=== PATIENT | female | born 1975 | race Hispanic/Latino ===

== ENCOUNTER 2020-12-02 13:11 | Emergency (ER) | payer OTHER ==
--- OUTSIDE RECORDS SUMMARY | 2020-12-02 13:14 | XMS REPORT | Clinical Summary ---
:1975 Author Organization [facility] Address [address] [place] [address] Care Team Providers Name Role Phone Alexandra Mackenzie MD Primary Care Provider Allergies Active Allergy Reactions Severity Noted Date Comments No Known Drug Allergies 04/17/2016 Medications Medication Sig Dispensed Refills Start Date End Date Status DULoxetine (CYMBALTA) 60 TK 1 C PO QD 2 07/06/2016 Active MG capsule traZODone (DESYREL) 100 MG 4 07/16/2016 Active tablet diclofenac (VOLTAREN) 75 TK 1 T PO BID 2 08/08/2016 Active MG EC tablet Active Problems Problem Noted Date Positive CHAPARRO (antinuclear antibody) 08/01/2016 Pain in joint, multiple sites 08/01/2016 Klein's cyst 08/01/2016 Fatigue 04/17/2016 Mouth ulcers H/O heartburn Depression Surgical History Surgery Date Site/Laterality Comments APPENDECTOMY 11/03/2014 - 11/02/2015 CHOLECYSTECTOMY 11/03/2014 - 11/02/2015 Medical History Medical History Date Comments Anxiety generalized anxiety disorder Fatigue Mouth ulcers H/O heartburn Depression Family History Medical History Relation Name Comments Seizures Brother Breast cancer Mother Relation Name Status Comments Brother Mother Social History Tobacco Use Types Packs/Day Years Used Date Never Smoker Smokeless Tobacco: Never Used Alcohol Use Drinks/Week oz/Week Comments No not found Sex Assigned at Date Recorded Not on file Last Filed Vital Signs Not on file Plan of Treatment Health Maintenance Due Date Last Done Comments COVID-19 VACCINE (1 of 2) 1993 CERVICAL CANCER SCREENING 1998 INFLUENZA VACCINE 06/03/2020 Results Not on fileafter 12/02/2019 Advance Directives For more information, please contact: [phone] 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
[2020-12-02 14:30] LABS: Basophils % 0.5 % (0-1.3); Hematocrit 38.4 % (36.0-45.0); Lymphocytes % 28.6 % (15.3-44.8); MPV 8.1 fL (7.6-11.3); RBC Red Blood Cell Count 4.28 M/uL (3.86-4.86)
[2020-12-02 14:55] LABS: Albumin 3.9 g/dL (3.4-5.0); Bilirubin Total 0.2 mg/dL (0.2-1.0); Potassium 3.8 mmol/L (3.5-5.1); Protein, Total 7.8 g/dL (6.4-8.2)
[2020-12-02] MEDS ORDERED: HYDROCODONE/APAP 5/325 MG TAB ONE (14:56)
--- NOTE | 2020-12-02 15:29 | EDPHYS ---
Physician Documentation [facility] Name: Ana Rosa Wallace Age: 45 yrs Sex: Female : 1975 Arrival Date: 12/02/2020 Time: 13:15 Bed 6 Private MD: Kameron Morris E ED Physician Olivia Box HPI: 12/02 14:09 This 45 yrs old Female presents to ER via Ambulatory with complaints of Pain pm1 All Over, Joint pain. 14:09 Patient presenting with multiple complaints, but primarily joint pain all over. Onset: pm1 The symptoms/episode began/occurred 10/25/2020. The patient has been recently seen by a physician: the patient's primary care provider, Dr. Morris with similar presenting complaints, Had MRI done 2 weeks ago that was negative and then she was refereed to rheumatology. Patient has appointment with rheumatology in January but she wants some pain relief from her joint pain. Patient was seen at [facility] for the same complaint also and she was given a prescription for meloxicam. Historical: - Allergies: 13:52 No Known Allergies; ss - PMHx: 13:52 Anxiety; Depression; Rheumatoid Arthritis; ss - PSHx: 13:52 Cholecystectomy; Appendectomy; ss - Immunization history:: Adult Immunizations up to date. - Social history:: Smoking status: Patient denies any tobacco usage or history of. ROS: 14:09 Constitutional: Negative for fever, chills, and weight loss, Eyes: Negative for injury, pm1 pain, redness, and discharge, ENT: Negative for injury, pain, and discharge, Neck: Negative for injury, pain, and swelling, Cardiovascular: Negative for chest pain, palpitations, and edema, Respiratory: Negative for shortness of breath, cough, wheezing, and pleuritic chest pain, Abdomen/GI: Negative for abdominal pain, nausea, vomiting, diarrhea, and constipation, Back: Negative for injury and pain. 14:09 Skin: Negative for injury, rash, and discoloration, Neuro: Negative for headache, weakness, numbness, tingling, and seizure. 14:09 MS/extremity: Positive for joint pain, Negative for injury or acute deformity, decreased range of motion, deformity. Exam: 14:09 Constitutional: This is a well developed, well nourished patient who is awake, alert, pm1 and in no acute distress. Head/Face: Normocephalic, atraumatic. 14:09 Back: No spinal tenderness. No costovertebral tenderness. Full range of motion. Skin: Warm, dry with normal turgor. Normal color with no rashes, no lesions, and no evidence of cellulitis. MS/ Extremity: Pulses equal, no cyanosis. Neurovascular intact. Full, normal range of motion. 14:09 Eyes: Exam is negative for acute changes, Periorbital structures: appear normal, Pupils: no acute changes, Extraocular movements: no acute changes, Conjunctiva: normal. 14:09 Cardiovascular: Exam negative for acute changes, Rate: normal, Rhythm: regular, Pulses: no pulse deficits are appreciated. 14:09 Respiratory: Exam negative for acute changes, respiratory distress, shortness of breath. 14:09 Abdomen/GI: Inspection: abdomen appears normal, Palpation: abdomen is soft and non-tender, in all quadrants. 14:09 Neuro: Exam negative for acute changes, Orientation: is normal, Mentation: is normal, Motor: is normal, moves all fours, Gait: is steady, at a normal pace, without difficulty. Vital Signs: 13:39 BP 109 / 80; Pulse 92; Resp 16; Temp 97.7(TE); Pulse Ox 98% ; Weight 71.67 kg; Height 5 ss ft. 1 in. (154.94 cm); Pain 10/10; 15:02 BP 96 / 72; Pulse 88; Resp 16; Pulse Ox 97% on R/A; hb 15:37 BP 102 / 74; Pulse 84; Resp 16; Pulse Ox 99% ; hb 13:39 Body Mass Index 29.85 (71.67 kg, 154.94 cm) ss MDM: 13:58 Patient medically screened. pm1 15:26 Data reviewed: vital signs. 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 08/17/2020 last pm1 prescription filled. 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 12/02 14:01 Order name: CBC with Diff; Complete Time: 14:39 pm1 12/02 14:01 Order name: CMP; Complete Time: 15:07 pm1 Administered Medications: 12:40 Drug: [place] 5 mg-325 mg 1 tabs Route: PO; hb 15:37 Follow up: Response: No adverse reaction hb Disposition: 12/02/20 15:29 Discharged to Home. Impression: Pain in unspecified joint - multiple joints. - Condition is Stable. - Discharge Instructions: Joint Pain. - Prescriptions for Tylenol- Codeine #3 300-30 mg Oral Tablet - take 2 tablets by ORAL route every 6 hours As needed; 20 tablet. - Medication Reconciliation Form, Thank You Letter, Antibiotic Education, Prescription Opioid Use form. - Follow up: Emergency Department; When: As needed; Reason: Worsening of condition. Follow up: Private Physician; When: 2 - 3 days; Reason: Recheck today's complaints, Continuance of care, Re-evaluation by your physician. - Problem is new. - Symptoms are unchanged. Addendum: 12/04/2020 18:01 Co-signature as Attending Physician, Olivia Box MD. m a2 Signatures: Dispatcher [employer] EDMS Jennifer Welsh RN RN ss Aleksandar Valiente NP PRODUCE SHIPPER pm1 Tiffanie Correia RN RN Olivia Box MD MD ma2 Corrections: (The following items were deleted from the chart) 12/02 15:29 15:29 12/02/2020 15:29 Discharged to Home. Impression: Pain in unspecified joint. pm1 Condition is Stable. Forms are Medication Reconciliation Form, Thank You Letter, Antibiotic Education, Prescription Opioid Use. Follow up: Emergency Department; When: As needed; Reason: Worsening of condition. Follow up: Private Physician; When: 2 - 3 days; Reason: Recheck today's complaints, Continuance of care, Re-evaluation by your physician. Problem is new. Symptoms are unchanged. pm1 15:39 15:29 12/02/2020 15:29 Discharged to Home. Impression: Pain in unspecified joint - hb multiple joints. Condition is Stable. Forms are Medication Reconciliation Form, Thank You Letter, Antibiotic Education, Prescription Opioid Use. Follow up: Emergency Department; When: As needed; Reason: Worsening of condition. Follow up: Private Physician; When: 2 - 3 days; Reason: Recheck today's complaints, Continuance of care, Re-evaluation by your physician. Problem is new. Symptoms are unchanged. pm1
--- NOTE | 2020-12-02 15:29 | ER ---
Nurse's Notes [facility] Name: Ana Rosa Wallace Age: 45 yrs Sex: Female : 1975 Arrival Date: 12/02/2020 Time: 13:15 Bed 6 Private MD: Kameron Morris E Diagnosis: Pain in unspecified joint-multiple joints Presentation: 12/02 13:39 Chief complaint: Patient states: Joint pain that began before Zoë. Pt has follow ss up appointments with neurology and rheumatology, but her pain is unbearable and does not want to wait until her appointment. Coronavirus screen: Client denies travel out of the [place] in the last 14 days. Ebola Screen: Patient denies exposure to infectious person. Patient denies travel to an Ebola-affected area in the 21 days before illness onset. Initial Sepsis Screen: Does the patient meet any 2 criteria? No. Patient's initial sepsis screen is negative. Does the patient have a suspected source of infection? No. Patient's initial sepsis screen is negative. Risk Assessment: Do you want to hurt yourself or someone else? Patient reports no desire to harm self or others. Onset of symptoms was October 2020. 13:39 Method Of Arrival: Ambulatory ss 13:39 Acuity: BELEM 3 ss Historical: - Allergies: 13:52 No Known Allergies; ss - PMHx: 13:52 Anxiety; Depression; Rheumatoid Arthritis; ss - PSHx: 13:52 Cholecystectomy; Appendectomy; ss - Immunization history:: Adult Immunizations up to date. - Social history:: Smoking status: Patient denies any tobacco usage or history of. Screenin:47 Abuse screen: Denies threats or abuse. Denies injuries from another. Nutritional hb screening: No deficits noted. Tuberculosis screening: No symptoms or risk factors identified. Fall Risk None identified. Assessment: 14:15 General: Appears in no apparent distress. Behavior is calm, cooperative. Pain: Pain hb currently is 8 out of 10 on a pain scale. Neuro: Level of Consciousness is awake, alert, obeys commands, Oriented to person, place, time, situation. Cardiovascular: Capillary refill < 3 seconds Patient's skin is warm and dry. Respiratory: Respiratory effort is even, unlabored, Respiratory pattern is regular, symmetrical. GI: No signs and/or symptoms were reported involving the gastrointestinal system. : No signs and/or symptoms were reported regarding the genitourinary system. EENT: No signs and/or symptoms were reported regarding the EENT system. Derm: Skin is intact. Musculoskeletal: Reports pain all over. 15:02 Reassessment: Patient appears in no apparent distress at this time. Patient and/or hb family updated on plan of care and expected duration. Pain level reassessed. Patient is alert, oriented x 3, equal unlabored respirations, skin warm/dry/pink. Vital Signs: 13:39 BP 109 / 80; Pulse 92; Resp 16; Temp 97.7(TE); Pulse Ox 98% ; Weight 71.67 kg; Height 5 ss ft. 1 in. (154.94 cm); Pain 10/10; 15:02 BP 96 / 72; Pulse 88; Resp 16; Pulse Ox 97% on R/A; hb 15:37 BP 102 / 74; Pulse 84; Resp 16; Pulse Ox 99% ; hb 13:39 Body Mass Index 29.85 (71.67 kg, 154.94 cm) ss ED Course: 13:15 Patient arrived in ED. mr 13:15 Kameron Morris MD is Private Physician. mr 13:46 Aleksandar Valiente, ROEL is PHCP. pm1 13:47 Olivia Box MD is Attending Physician. pm1 13:51 Triage completed. ss 13:52 Arm band placed on right wrist. ss 14:17 Initial lab(s) drawn, by ga, sent to lab. Inserted saline lock: 20 gauge in right dh3 antecubital area, using aseptic technique. Blood collected. 14:38 Tiffanie Correia, RN is Primary Nurse. hb 14:47 Patient has correct armband on for positive identification. Call light in reach. Side hb rails up X 1. 15:38 No provider procedures requiring assistance completed. IV discontinued, intact, hb bleeding controlled, No redness/swelling at site. Administered Medications: 12:40 Drug: [place] 5 mg-325 mg 1 tabs Route: PO; hb 15:37 Follow up: Response: No adverse reaction hb Outcome: 15:29 Discharge ordered by MD. pm1 15:38 Discharged to home ambulatory. hb 15:38 Condition: stable 15:38 Discharge instructions given to patient, Instructed on discharge instructions, follow up and referral plans. medication usage, Demonstrated understanding of instructions, follow-up care, medications, Prescriptions given X 1. 15:39 Patient left the ED. Signatures: An Saldaña Shelby RN MICKIE Aleksandar Valiente NP POSTAL SERVICE MAIL PROCESSOR pm1 Tiffanie Correia RN RN Elisa Palma 3
[2020-12-02 15:43] VITALS: TEMP 97.7
[2020-12-02 15:45] VITALS: BP 102/74; O2SAT 99
== END 2020-12-02 15:39 | disposition home or self-care (01) ==
LOC: ER 13:11
DX: M25.50 Pain in unspecified joint (principal); F41.9 Anxiety disorder, unspecified; F32.9 Major depressive disorder, single episode, unspecified; M06.9 Rheumatoid arthritis, unspecified
CPT/HCPCS: 36415; 80053; 85025; 99284

== ENCOUNTER 2022-05-20 22:16 | Emergency (ER) | payer OTHER ==
[2022-05-20] MEDS ORDERED: MAGNES/ALUMIN/SIMET 30ML UCUP ONE (22:40)
[2022-05-20] MEDS ORDERED: LIDOCAINE VISCOUS 2% SOLN 15 ML UDC ONE (22:40)
[2022-05-20] MEDS ORDERED: ASPIRIN 81 MG CHEWABLE TABLET ONE (22:40)
[2022-05-21 02:25] LABS: Absolute Lymphocytes (CBC) 1.7 K/uL (0.7-4.9); Hematocrit 35.6 % (36.0-45.0); Lymphocytes % 25.4 % (15.3-44.8); MCV 88.5 fL (80-100); MPV 7.7 fL (7.6-11.3); RBC Red Blood Cell Count 4.02 M/uL (3.86-4.86)
[2022-05-21 02:37] LABS: Troponin High Sensitivity 3.6 pg/mL (<58.9)
--- NOTE | 2022-05-21 05:23 | ER ---
Nurse's Notes [facility] Name: Ana Rosa Wallace Age: 47 yrs Sex: Female : 1975 Arrival Date: 05/20/2022 Time: 22:17 Bed 5 Private MD: Diagnosis: Upper abdominal pain, unspecified Presentation: 05/20 22:20 Chief complaint: EMS states: called out for chest pain. on seen pt vomited and reported as6 that chest pain improved. Coronavirus screen: At this time, the client does not indicate any symptoms associated with coronavirus-19. Ebola Screen: No symptoms or risks identified at this time. Initial Sepsis Screen: Does the patient meet any 2 criteria? No. Patient's initial sepsis screen is negative. Does the patient have a suspected source of infection? No. Patient's initial sepsis screen is negative. Risk Assessment: Do you want to hurt yourself or someone else? Patient reports no desire to harm self or others. Onset of symptoms was May 20, 2022. 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 - Social history:: Smoking status: Patient denies any tobacco usage or history of. Screenin:48 Abuse screen: Denies threats or abuse. Denies injuries from another. Nutritional as6 screening: No deficits noted. Tuberculosis screening: No symptoms or risk factors identified. Fall Risk None identified. Assessment: 22:30 General: Appears ill, slender, Behavior is calm, cooperative. Pain: Complains of pain as6 in mid-sternal area Pain radiates to back. Neuro: Level of Consciousness is awake, alert, obeys commands, Oriented to person, place, time, situation. Cardiovascular: Reports chest pain. Respiratory: Respiratory effort is even, unlabored. GI: Reports nausea. Vital Signs: 22:20 BP 133 / 83; Pulse 58; Resp 13 S; Temp 97.8(O); Pulse Ox 100% on R/A; Weight 54.43 kg as6 (R); Height 5 ft. 1 in. (154.94 cm) (R); Pain 10/10; 23:00 BP 110 / 81; Pulse 64; Resp 13 S; Pulse Ox 100% on R/A; as6 23:30 BP 110 / 76; Pulse 70; Resp 18 S; Pulse Ox 100% on R/A; as6 05/21 01:30 BP 113 / 78; Pulse 69; Resp 13 S; Pulse Ox 100% on R/A; as6 02:37 BP 122 / 80; Pulse 68; Resp 14 S; Pulse Ox 100% on R/A; as6 05/20 22:20 Body Mass Index 22.67 (54.43 kg, 154.94 cm) as6 ED Course: 05/20 22:17 Patient arrived in ED. as6 22:18 Nikhil Giron, MICKIE is Primary Nurse. as6 22:18 James Selby is PHCP. jl9 22:18 Hermelindo Bishop MD is Attending Physician. jl9 22:40 Triage completed. as6 22:46 Inserted saline lock: 20 gauge in right antecubital area, using aseptic technique. aa9 Blood collected. 22:47 Basic Metabolic Panel Sent. aa9 22:47 CBC with Diff Sent. aa9 22:47 Troponin HS Sent. aa9 22:56 XRAY Chest (1 view) In Process Unspecified. EDMS 23:48 Placed in gown. Bed in low position. Call light in reach. Side rails up X2. Client as6 placed on continuous cardiac and pulse oximetry monitoring. NIBP monitoring applied. Warm blanket given. 23:48 Arm band placed on. as6 05/21 03:16 CT Abd/Pelvis - IV Contrast Only In Process Unspecified. EDMS 03:26 Troponin High Sensitivity Sent. tw5 05:22 Kameron Brar MD is Referral Physician. rn 05:37 No provider procedures requiring assistance completed. IV discontinued, intact, tw5 bleeding controlled, No redness/swelling at site. Pressure dressing applied. Administered Medications: 05/20 22:42 Drug: Aspirin Chewable Tablet 324 mg Route: PO; aa9 22:50 Follow up: Response: No adverse reaction aa9 22:45 Drug: GI Cocktail with - (Phenobarbital-Belladonna 10 ml, Maalox Suspension 30 aa9 ml, Lidocaine Liquid 2 % 20 ml) Route: PO; 22:50 Follow up: Response: No adverse reaction aa9 Medication: 05/21 05:37 VIS not applicable for this client. tw5 Outcome: 05:23 Discharge ordered by . rn 05:37 Discharged to home ambulatory. tw5 05:37 Condition: improved 05:37 Discharge instructions given to family, Instructed on discharge instructions, follow up and referral plans. Demonstrated understanding of instructions, follow-up care. 05:38 Patient left the ED. 5 Signatures: Dispatcher [employer] EDMS Hermelindo Bishop MD MD rn Wood, Tiffany tw5 Nikhil Giron RN RN as6 James Selby jl9 Antonia Benitez RN RN aa9
--- NOTE | 2022-05-21 05:24 | EDPHYS ---
Physician Documentation [facility] Name: Ana Rosa Wallace Age: 47 yrs Sex: Female : 1975 Arrival Date: 05/20/2022 Time: 22:17 Bed 5 Private MD: ED Physician Hermelindo Bishop HPI: 05/20 22:22 This 47 yrs old Female presents to ER via EMS with complaints of Chest pain. jl9 Patient reports chest pain started while laying in bed. 22:22 Onset: The symptoms/episode began/occurred just prior to arrival. Severity of symptoms: jl9 Pain is currently a 3 / 10. The patient has experienced a previous episode. 22:22 Patient reports being under more stress than normal. . jl9 05/21 00:12 Patient describes midsternal/ epigastric discomfort. . jl9 OUTSIDE B2B SALES: 05/20 23:48 LMP N/A - Hysterectomy as6 Historical: - Allergies: 22:40 No Known Allergies; as6 - PMHx: 22:40 Anxiety; Depression; Rheumatoid Arthritis; as6 - PSHx: 22:40 Appendectomy; Total abdominal hysterectomy; Cholecystectomy; as6 - Immunization history:: Client reports receiving the 2nd dose of the Covid vaccine, moderna. - Social history:: Smoking status: Patient denies any tobacco usage or history of. ROS: 22:23 Constitutional: Negative for fever, chills, and weight loss, Eyes: Negative for injury, jl9 pain, redness, and discharge, ENT: Negative for injury, pain, and discharge, Neck: Negative for injury, pain, and swelling. 22:23 Respiratory: Negative for shortness of breath, cough, wheezing, and pleuritic chest pain, Abdomen/GI: Negative for abdominal pain, nausea, vomiting, diarrhea, and constipation, Back: Negative for injury and pain, : Negative for injury, bleeding, discharge, and swelling, MS/Extremity: Negative for injury and deformity, Skin: Negative for injury, rash, and discoloration, Neuro: Negative for headache, weakness, numbness, tingling, and seizure, Psych: Negative for depression, anxiety, suicide ideation, homicidal ideation, and hallucinations, Allergy/Immunology: Negative for hives, rash, and allergies, Endocrine: Negative for neck swelling, polydipsia, polyuria, polyphagia, and marked weight changes, Hematologic/Lymphatic: Negative for swollen nodes, abnormal bleeding, and unusual bruising. 22:23 Cardiovascular: Positive for chest pain, Negative for edema, orthopnea, palpitations. Exam: 22:24 Constitutional: This is a well developed, well nourished patient who is awake, alert, jl9 and in no acute distress. Head/Face: Normocephalic, atraumatic. Eyes: Pupils equal round and reactive to light, extra-ocular motions intact. Lids and lashes normal. Conjunctiva and sclera are non-icteric and not injected. Cornea within normal limits. Periorbital areas with no swelling, redness, or edema. ENT: Mucous membranes moist. Neck: Trachea midline, no thyromegaly or masses palpated, and no cervical lymphadenopathy. Supple, full range of motion without nuchal rigidity, or vertebral point tenderness. No Meningismus. 22:24 Cardiovascular: Regular rate and rhythm with a normal S1 and S2. No gallops, murmurs, or rubs. Normal PMI, no JVD. No pulse deficits. Respiratory: Lungs have equal breath sounds bilaterally, clear to auscultation and percussion. No rales, rhonchi or wheezes noted. No increased work of breathing, no retractions or nasal flaring. Abdomen/GI: Soft, non-tender, with normal bowel sounds. No distension or tympany. No guarding or rebound. No evidence of tenderness throughout. Back: No spinal tenderness. No costovertebral tenderness. Full range of motion. Pelvic Exam: Normal external genitalia. Speculum exam with closed cervical os, no discharge or bleeding noted. Bimanual exam with normal adnexa, no adnexal or cervical motion tenderness. Normal uterus. Skin: Warm, dry with normal turgor. Normal color with no rashes, no lesions, and no evidence of cellulitis. MS/ Extremity: Pulses equal, no cyanosis. Neurovascular intact. Full, normal range of motion. Neuro: Awake and alert, GCS 15, oriented to person, place, time, and situation. Cranial nerves II-XII grossly intact. Motor strength 5/5 in all extremities. Sensory grossly intact. Cerebellar exam normal. Normal gait. Psych: Awake, alert, with orientation to person, place and time. Behavior, mood, and affect are within normal limits. 22:24 Chest/axilla: Inspection: normal, Palpation: is normal, Axilla: are normal. 22:59 ECG was reviewed by the Attending Physician. jl9 Vital Signs: 22:20 BP 133 / 83; Pulse 58; Resp 13 S; Temp 97.8(O); Pulse Ox 100% on R/A; Weight 54.43 kg as6 (R); Height 5 ft. 1 in. (154.94 cm) (R); Pain 10/10; 23:00 BP 110 / 81; Pulse 64; Resp 13 S; Pulse Ox 100% on R/A; as6 23:30 BP 110 / 76; Pulse 70; Resp 18 S; Pulse Ox 100% on R/A; as6 05/21 01:30 BP 113 / 78; Pulse 69; Resp 13 S; Pulse Ox 100% on R/A; as6 02:37 BP 122 / 80; Pulse 68; Resp 14 S; Pulse Ox 100% on R/A; as6 05/20 22:20 Body Mass Index 22.67 (54.43 kg, 154.94 cm) as6 MDM: 05/20 22:21 Patient medically screened. jl9 22:24 Data reviewed: vital signs, nurses notes. jl9 23:55 Counseling: I had a detailed discussion with the patient and/or guardian regarding: the jl9 historical points, exam findings, and any diagnostic results supporting the discharge/admit diagnosis, lab results, radiology results, the need for outpatient follow up, to return to the emergency department if symptoms worsen or persist or if there are any questions or concerns that arise at home. 05/21 00:33 ED course: Pt reports to me abdominal pain, epigastric, radiates to chest, had pain for rn 2-3 minutes then started to ease on its own, resolved here after GI cocktail. Reports several similar episodes recently but not as bad as today, has been seeing Dr. Brar for these pains, put on antacids, had EGD and colonoscopy, and is going to have CT abdomen to further evaluate. Currently upon my evaluation, is pain free. + mild tenderness with epigastric palpation. Added CT abdomen to w/u.. 03:59 ED course: Repeat troponin negative. . rn 05:20 Differential diagnosis: diverticulitis, gastritis, gastroesophageal reflux disease, rn non-specific abd pain, pancreatitis, Peptic Ulcer Disease, Perf. Duodenal Ulcer, Perf. Gastric Ulcer. Response to treatment: the patient's symptoms have resolved after treatment, the patient's condition has returned to base line, the patient is now symptom free, and as a result, I will discharge patient. ED course: No acute findings on CT abdomen. Notified of possible urethral cyst/diverticulum, will f/u with urology. Will continue antacids and f/u with GI. Trop neg x 2. . 05/20 22:20 Order name: Basic Metabolic Panel; Complete Time: 02:40 [facility] 05/20 22:20 Order name: CBC with Diff; Complete Time: 02:40 [facility] 05/20 22:20 Order name: Troponin HS; Complete Time: 02:40 [facility] 05/20 22:20 Order name: XRAY Chest (1 view) [facility] 05/21 00:32 Order name: CT Abd/Pelvis - IV Contrast Only rn 05/21 03:13 Order name: Troponin High Sensitivity; Complete Time: 03:59 rn 05/20 22:20 Order name: EKG; Complete Time: 22:20 [facility] 05/20 22:20 Order name: Cardiac monitoring; Complete Time: 22:31 [facility] 05/20 22:20 Order name: EKG - Nurse/Tech; Complete Time: 22:32 [facility] 05/20 22:20 Order name: IV Saline Lock; Complete Time: 22:47 [facility] 05/20 22:20 Order name: Labs collected and sent; Complete Time: 22:47 [facility] 05/21 00:35 Order name: EKG; Complete Time: 00:36 rn 05/20 22:20 Order name: O2 Per Protocol; Complete Time: 22:32 [facility] 05/20 22:20 Order name: O2 Sat Monitoring; Complete Time: 22:32 [facility] 05/21 00:35 Order name: EKG - Nurse/Tech; Complete Time: 01:16 rn Administered Medications: 05/20 22:42 Drug: Aspirin Chewable Tablet 324 mg Route: PO; aa9 22:50 Follow up: Response: No adverse reaction aa9 22:45 Drug: GI Cocktail with - (Phenobarbital-Belladonna 10 ml, Maalox Suspension 30 aa9 ml, Lidocaine Liquid 2 % 20 ml) Route: PO; 22:50 Follow up: Response: No adverse reaction aa9 Disposition: 05/21 07:16 Co-signature as Attending Physician, Hermelindo Bishop MD. rn Disposition Summary: 05/21/22 05:23 Discharge Ordered Location: Home rn Problem: new rn Symptoms: have improved rn Condition: Stable rn Diagnosis - Upper abdominal pain, unspecified rn Followup: rn - With: Kameron Brar MD - When: As needed - Reason: Recheck today's complaints, Re-evaluation by your physician Discharge Instructions: - Discharge Summary Sheet rn - Abdominal Pain, Adult rn Forms: - Medication Reconciliation Form rn - Thank You Letter rn - Antibiotic rn obgyn - Prescription Opioid Use rn Signatures: Dispatcher [employer] EDMS Hermelindo Bishop MD MD rn Slawson, Ashby, RN RN [email or web address] James Selby jl9 Antonia Benitez RN RN aa9 Corrections: (The following items were deleted from the chart) 05/20 23:55 22:22 This 47 yrs old Female presents to ER via EMS with complaints of Chest jl9 pain. jl9
[2022-05-21 05:47] VITALS: TEMP 97.8; O2SAT 100
[2022-05-21 05:53] VITALS: BP 122/80
--- NOTE | 2022-05-21 08:13 | EKG ---
Test Date: 2022-05-21 Test Time: 01:14:25 Director College: [employer] MEASUREMENT RESULTS: Intervals: Rate: 67 MS: 136 QRSD: 82 QT: 396 QTc: 418 [place]: P: 57 MS: 136 QRS: 64 T: 65 INTERPRETIVE STATEMENTS: Normal sinus rhythm Low voltage QRS Borderline ECG Compared to ECG 05/20/2022 22:31:04 Low QRS voltage now present Sinus bradycardia no longer present ST (T wave) deviation no longer present Electronically Signed On 05-21-22 08:12:22 CDT by Jose Christopher
--- NOTE | 2022-05-21 08:14 | EKG ---
Test Date: 2022-05-20 Test Time: 22:31:04 [employer] Spec: GIUSEPPE MEASUREMENT RESULTS: Intervals: Rate: 58 MS: 138 QRSD: 74 QT: 420 QTc: 412 [place]: P: 48 MS: 138 QRS: 56 T: 74 INTERPRETIVE STATEMENTS: Sinus bradycardia Nonspecific ST abnormality Abnormal ECG Compared to ECG 03/15/2007 13:06:03 ST (T wave) deviation now present Sinus rhythm no longer present Sinus arrhythmia no longer present Electronically Signed On 05-21-22 08:12:26 CDT by Jose Christopher
--- NOTE | 2022-05-21 15:04 | RAD REPORT ---
EXAM DESCRIPTION: RAD - Chest Single View - 05/20/2022 10:54 pm CLINICAL HISTORY: 47 years Female, sdaf COMPARISON: Chest radiograph dated 07/25/2021 FINDINGS: No focal lung consolidation. No pleural effusion. No pneumothorax. Cardiomediastinal silhouette is within normal limits. No acute osseous abnormality. IMPRESSION: No acute cardiopulmonary disease. Electronically signed by: Mello Glaser DO 05/20/2022 11:13 PM CDT Due to temporary technical issues with the PACS/Fluency reporting system, reports are being signed by the in house radiologists without review as a courtesy to insure prompt reporting. The interpreting radiologist is fully responsible for the content of the report.
--- NOTE | 2022-05-21 16:16 | RAD REPORT ---
EXAM DESCRIPTION: CT - Abdomen Pelvis W Contrast - 05/21/2022 6:12 am CLINICAL HISTORY: 47 years Female abdominal pain TECHNIQUE: CT of the abdomen and pelvis using intravenous contrast. All CT scans at this facility us e dose modulation, iterative reconstruction, and/or weight based dosing when appropriate to reduce ra diation dose to as low as reasonably achievable. COMPARISON: 04/12/2021. FINDINGS: Lower chest: Lung bases are clear. Abdomen/Pelvis: Liver: 6 mm left hepatic lobe cyst. Gallbladder: Status post cholecystectomy. Pancreas: Within normal limits. Spleen: Within normal limits. Kidney: No hydronephrosis. No focal lesion. Adrenal glands: Within normal limits. Vascular structures: Unremarkable. Bowel: Large amount of stool throughout the colon. No bowel distention. Appendix: Not seen. Peritoneum: No free fluid or free air. Lymph Nodes: No lymphadenopathy. Reproductive: Unremarkable. Urinary bladder: Distended. Other: A 1.5 x 1.0 cm hypodensity at the level of the urethra. Osseous structures: Unremarkable. Soft tissues: Unremarkable. IMPRESSION: 1. No acute findings. 2. A 1.5 cm hypodensity at the level of the urethra. Differential includes periurethral diverticulum or cyst. This can be further evaluated with MRI. Electronically signed by: Reji Joseph MD 05/21/2022 5:16 AM CDT Due to temporary technical issues with the PACS/Fluency reporting system, reports are being signed by the in house radiologists without review as a courtesy to insure prompt reporting. The interpreting radiologist is fully responsible for the content of the report.
== END 2022-05-21 05:38 | disposition home or self-care (01) ==
LOC: ER 22:16
DX: R10.13 Epigastric pain (principal); R07.9 Chest pain, unspecified
CPT/HCPCS: 93005 ×2; 85025; 80048; 36415; 84484 ×2; 74177; 71045; Q9967